=== PATIENT | female | born 1975 | race Caucasian/White ===

== ENCOUNTER 2016-10-24 21:55 | Emergency (ER) | payer BC ==
[~2016-10-24] VITALS: Ht 170.2 cm; Wt 76.7 kg
[~2016-10-24 21:55] MED LIST: DIAZ5TAB4 PO; FAMO20TA8 PO; METO10TA3 PO; MULT1TAB69 PO; SERT50TA12 PO; [UNRECOGNIZED DRUG - CODE] PO
[2016-10-24 21:57] VITALS: Ht 170.2 cm; Wt 76.7 kg
--- OUTSIDE RECORDS SUMMARY | 2016-10-24 22:00 | XMS REPORT | Continuity of Care Document ---
Author Author [facility] Organization [facility] Address Unknown Phone Unavailable Support Name Relationship Address Phone KAVITHA RUEDA APRN Caregiver [facility] [address] [place], [place] [phone] RUBIO KATHLEEN MD Caregiver [address] [place] [phone] SARAH OCONNOR Next Of Kin [address] [id number] Insurance Providers Payer Name Policy Number Subscriber Name Relationship [employer] Other [id number] ZeeshanJulito Spouse Advance Directives Directive Response Recorded Date/Time Resuscitation Documents on File No 06/07/14 1:55pm Problems No known problems or medical conditions. Medications Medication Dose Route Sig Days/Qty Instructions Order Date Discontinued Date Status Multivitamin 1 Tab PO DAILY 06/07/14 Active Griselda's Wort 300 Mg PO DAILY 06/07/14 Active Diazepam 5 Mg PO DAILY 30 Qty 06/07/14 Active Metoclopramide HCl 10 Mg PO DAILY 90 Qty 06/07/14 Active Famotidine 20 Mg PO DAILY 14 Qty 06/07/14 Active Sertraline HCl 50 Mg PO DAILY 84 Qty 06/07/14 Active Social History Social History Problem Response Recorded Date/Time Smoking Status Current every day smoker 06/08/2014 7:41am Chewing Tobacco Status No 06/08/2014 7:41am Hx Substance Use No 06/08/2014 7:41am Hx Alcohol Use No 06/08/2014 7:41am Has the pt used tobacco in the last 12 months Yes 06/08/2014 7:41am Hospital Discharge Instructions No hospital discharge instructions. Plan of Care No plan of care. Functional Status No functional status results. Allergies, Adverse Reactions, Alerts Allergen Type Severity Reaction Status Last Updated Sulfa (Sulfonamide Antibiotics) Allergy Unknown Active 06/07/14 Nitroglycerin Allergy Unknown Active 06/07/14 Immunizations Name Given Type Hx Influenza Vaccination No Historical Hx Pneumococcal Vaccination No Historical Hx Influenza Vaccination No Historical Vital Signs Acute Vital Signs Vital Response Date/Time Temperature (Fahrenheit) 98.2 deg F (96.8 - 99.1) Temperature (Calculated Celsius) 36.56134 degrees C (36.0 - 37.3) Temperature Source Temporal Pulse Rate (adult) 88 bpm (60 - 100) Respiratory Rate 16 breaths/min (10 - 20) O2 Sat by Pulse Oximetry 97 % (90 - 100) Oxygen Delivery Method Room Air Blood Pressure 108/81 mm Hg Blood Pressure Source Automatic Cuff Height 5 ft 7 in Weight 159 lb Body Mass Index 24.0 kg/m^2 Results Name: IRENE OCONNOR Unit #: [id number] : 1975 Sex: F Loc / Svc: KRISTINA DOS: 06/06/14 Signed Report #: [id number] DIAGNOSTIC IMAGING REPORT TYPE OF EXAM: CT ABDOMEN W/CONTRAST Dictated By: DENIZ KATHLEEN MD INDICATION: ITS.REASON: 789.07 EPIGASTRIC PAIN 789.[address] ABDOMEN W/CONTRAST: Comparison: None Technique: Axial CT images were performed through the abdomen after the administration of intravenous contrast. Contrast: Omnipaque 300 89 mL Findings: The lung bases are clear. The liver appears normal. No enhancing lesion or mass. No intra or extrahepatic biliary ductal dilatation. The gallbladder is surgically absent. The spleen, pancreas and adrenal glands are normal. Evidence of a prior Abram fundoplication. Right kidney shows a small probable cyst in the lower pole. Left kidney appears normal. No abdominal adenopathy. The visualized loops of small and large bowel in the abdomen are normal. Bone windows are normal. Impression: Negative exam. No acute disease process seen in the abdomen. . Procedures Procedure Status Date Provider(s) Esophagogastroduodenoscopy (EGD) with closed biopsy completed 06/08/14 RUBIO KATHLEEN MD Encounters Encounter Location Date/Time Registered Clinic [facility] 06/06/14 6:41am
--- OUTSIDE RECORDS SUMMARY | 2016-10-24 22:00 | XMS REPORT | Continuity of Care Document ---
Author Author [facility] Organization [facility] Address Unknown Phone Unavailable Allergies Active Description Code Type Severity Reaction Onset Reported/Identified Relationship to Patient Clinical Status Yes nitroglycerin nitroglycerin Drug Allergy Severe HEART STOPS 08/21/2015 Yes Sulfa (Sulfonamide Antibiotics) Sulfa (Sulfonamide Antibiotics) Drug Allergy Moderate HIVES, MIGRAINES 08/21/2015 Medications Problems Procedures Results Encounters ACCT No. Visit Date/Time Discharge Status Pt. Type Provider Facility Loc./Unit Complaint [id number] 08/22/2015 08:51:00 2015 00:00:00 DIS Outpatient Nile WATKINS, Marbin Potts [facility] W.END
--- NOTE | 2016-10-24 22:32 | ERPDOC ---
Departure Disposition Decision Date: Oct 24, 2016 Disposition Decision Time: 23:21 Disposition: 01 DISCHARGED HOME, SELF-CARE Impression Impression Impression: Primary Impression: Atypical chest pain Severity: Moderate Condition: Improved Seen By: Physician only Referrals: KAVITHA RUEDA APRN (Family) Patient Instructions: Gastroesophageal Reflux Disease (ED) Problems/Meds/Labs Reviewed?: Yes Medications reviewed and manag: Yes Follow up care ordered?: Yes Mental Status: Alert, Oriented Scripts Sucralfate (Carafate) 1 Gm Tablet 1 G PO ACHS for 10 Days, TAB Take 1 tablet, by mouth, 4 times a day (Before EACH meal and at BEDTIME). Prov: HUY MCKENZIE MD 10/24/16 HPI - Chest Pain General Chief Complaint: Chest Pain Stated Complaint: CP Time Seen by Provider: 22:32 Source: patient Exam Limitations: no limitations HPI - Chest Pain Initial Comments Patient is a 41-year-old female presents emergency room for evaluation of anterior chest pain with radiation to neck. Patient states she gets these episodes several times last 6 months she's had them twice. Usually they last 15 -20 minutes and self resolved. Patient is been worked up in the past with no elucidation of source. Patient tonight began developing the symptoms however they did not go away they continued for an hour. Patient became concerned so decided to present to the ER for evaluation. Occurred At: home Onset/Timing: Rapid Duration: 1 hr Pain/Severity Scale: Now & Worst: 4/10 Location: substernal Aspirin Treatment Today: unknown Prior Chest Pain/Cardiac Mariusz: non-cardiac Hx of Similar Symptoms: Yes Allergies: Coded Allergies: Sulfa (Sulfonamide Antibiotics) (Verified Allergy, Unknown, 10/24/16) nitroglycerin (Verified Allergy, Unknown, 10/24/16) Past History Past Medical History Metabolic: DENIES: diabetes, hypercholesterolemia, hypertension, hypothyroidism ENMT: DENIES: allergies Cardiac: DENIES: A-fib, CAD, CHF, [place] Respiratory: DENIES: COPD, asthma GI: GERD Surgical History General: DENIES: appendix, gallbladder Vaccines Hx Influenza Vaccination: No Hx Pneumococcal Vaccination: No Social History Smoking Status: Current every day smoker Substance Use Type: does not use Alcohol Intake: none Review of Systems Constitutional Constitutional: DENIES: appetite decrease, chills, dizziness, fever, weakness Eyes Vision: DENIES: double vision, loss of visual kwok ENMT Sinuses: DENIES: congestion, rhinorrhea Mouth/Throat: DENIES: scratchy throat, sore throat Cardiovascular Cardiac: chest pain, DENIES: dyspnea on exertion Pulmonary Respiratory: DENIES: cough, dyspnea, sputum, tachypnea GI Upper Abdomen: DENIES: nausea, pain, vomiting Lower Abdomen: DENIES: constipation, diarrhea, pain General: DENIES: frequency, urgency Musculoskeletal General: DENIES: pain Integumentary Skin: DENIES: color change, itching, rash Neurological General: DENIES: headache Endocrine Endocrine: DENIES: heat/cold intolerance Hematologic/Lymphatic Hematologic/Lymphatic: DENIES: anemia Physical Exam General General Nourishment: well nourished, well developed General Body Habitus: well groomed Vitals and Pain First Documented Vital Signs Date Time Temp Pulse Resp B/P Pulse Ox O2 Delivery O2 Flow Rate FiO2 10/24/16 21:57 97.9 88 20 114/73 99 Room Air Weight: Kilograms: 76.700 Height (feet): 5 Height (inches): 7.00 Triage Pain Scale: RN VS reviewed by Provider: Yes Eyes (brief) Eyes Brief: found: EOMI ENMT (brief) ENMT Brief: FOUND: mucosa moist, normal dentition, NOT FOUND: nasal erythema, pharnyx erythema, tonsillar deviation Neck (brief) Neck: NOT FOUND: adenopathy, spasm, tenderness Respiratory (brief) Respiratory: FOUND: clear all kwok, equal bilaterally, NOT FOUND: rales, wheezes Cardiovascular (brief) Cardiac: FOUND: regular rate, regular rhythm Capillary Refill: <2 sec Abdomen (brief) Abdominal Brief: FOUND: bowel normo active x4, soft, NOT FOUND: distended, tender Lymphatic (brief) Lymphatic Brief: NOT FOUND: adenopathy Musculoskeletal (brief) Musculoskeletal Brief: NOT FOUND: spasm, tenderness Integumentary (brief) Integumentary Brief: FOUND: dry, pink, warm, NOT FOUND: rash Neurologic (brief) Neurological Brief: FOUND: CN w/o gross def to obs, motor-no gross deficits, sensory-no gross deficits Psychiatric (brief) Psychiatric Brief: FOUND: alert, oriented Differential Diagnoses Considering: Acute [place], Anxiety/Panic, Angina, Aortic Dissection, Bradycardia, CHF, Esophageal Spasm, GERD, Hypertensive Emergency, Pericarditis, Pneumothorax , Pulmonary Edema, Pulmonary Embolus, Muscle Spasm Progress Results/Orders Orders Procedure Category Date Status Time EKG EKG 10/24/16 Taken 21:56 Cbc W/Auto LAB 10/24/16 Complete Diff-Reflex Manual 22:32 Bmp - Basic Metabolic LAB 10/24/16 Complete Panel 22:32 Probnp LAB 10/24/16 Complete 22:32 Troponin I W LAB 10/24/16 Complete Hemolysis Index 22:32 D-Dimer LAB 10/24/16 Complete 22:32 Magnesium LAB 10/24/16 Complete 22:32 Chest 1 View RAD 10/24/16 Taken 22:32 G.I. Cocktail PHA 10/24/16 Complete (/Maalox/Lidocaine 22:45 Lab Results Laboratory Tests Test 10/24/16 22:41 White Blood Count 9.4T/MM3 Red Blood Count 4.25M/MM3 Hemoglobin 14.2GM/DL Hematocrit 40.4% Mean Corpuscular Volume 95.1UM3 Mean Corpuscular Hemoglobin 33.4UUG Mean Corpuscular Hemoglobin Concent 35.1GM/DL RDW Standard Deviation 42.8FL Platelet Count 216T/MM3 Mean Platelet Volume 9.5UM3 Immature Granulocyte % (Auto) % Neutrophils (%) (Auto) % Lymphocytes (%) (Auto) % Monocytes (%) (Auto) % Eosinophils (%) (Auto) % Basophils (%) (Auto) % Absolute Immature Granulocyte (auto T/MM3 Absolute Neutrophils (auto) T/MM3 Absolute Lymphocytes (auto) T/MM3 Absolute Monocytes (auto) T/MM3 Absolute Eosinophils (auto) T/MM3 Absolute Basophils (auto) T/MM3 Neutrophils % (Manual) 89.0% Band Neutrophils % 1.0% Lymphocytes % (Manual) 4.0% Monocytes % (Manual) 4.0% Eosinophils % (Manual) 2.0% Absolute Neutrophils (Manual) 8.4T/MM3 Band Neutrophils # 0.1T/MM3 Lymphocytes # (Manual) 0.4T/MM3 Monocytes # (Manual) 0.4T/MM3 Eosinophils # (Manual) 0.2T/MM3 Red Cell Morphology Comment Normal D-Dimer 216NG/ML Turbidity < 20 Sodium Level 142MEQ/L Potassium Level 4.0MEQ/L Chloride Level 108MEQ/L Carbon Dioxide Level 26MEQ/L Anion Gap 8MEQ/L Blood Urea Nitrogen 18.0MG/DL Creatinine 0.7MG/DL Glomerular Filtration Rate Calc 92 BUN/Creatinine Ratio 26RATIO Glucose Level 124MG/DL Calculated Osmolality 276MOSM/KG Calcium Level 8.4MG/DL Magnesium Level 2.2MG/DL Icterus Index < 2 Troponin I < 0.012ng/ml YF-Tqx-D-Type Natriuretic Peptide 42PG/ML Chemistry Specimen Hemolysis < 15 Medications Current ED Medications Pharmacy Profile Note (/Maalox/ Lidocaine Soln) 30 ml O ONCE PO Last administered on 10/24/16t 23:04; Start 10/24/16 at 22:45; Stop 10/24/16 at 22:46 ; Status DC [facility] EKG and x-ray are all noncontributory, patient's symptoms have resolved she feels it is due to just time, however I did give patient a GI cocktail. We'll discharge patient home on Carafate follow-up with PCP for further evaluation EKG EKG : Rate: 60-100 Rhythm: sinus [place]: normal QRS: normal Intervals: normal ST/T: non-specific changes Interpreted by: signing physician Xray Xray : Xray: CXR Portable Interpretation: Normal, Interpreted by Me (no acute cardiopulmonary findings ) HUY MCKENZIE MD Oct 24, 2016 22:32
--- OUTSIDE RECORDS SUMMARY | 2016-10-24 22:36 | XMS REPORT | Continuity of Care Document ---
Author Author [facility] Organization [facility] Address Unknown Phone Unavailable Allergies Active Description Code Type Severity Reaction Onset Reported/Identified Relationship to Patient Clinical Status Yes nitroglycerin nitroglycerin Drug Allergy Severe HEART STOPS 08/21/2015 Yes Sulfa (Sulfonamide Antibiotics) Sulfa (Sulfonamide Antibiotics) Drug Allergy Moderate HIVES, MIGRAINES 08/21/2015 Medications Problems Procedures Results Encounters ACCT No. Visit Date/Time Discharge Status Pt. Type Provider Facility Loc./Unit Complaint [id number] 08/22/2015 08:51:00 2015 00:00:00 DIS Outpatient Nile WATKINS, Marbin Potts [facility]END
--- OUTSIDE RECORDS SUMMARY | 2016-10-24 22:37 | XMS REPORT | Continuity of Care Document ---
Author Author [facility] Organization [facility] Address Unknown Phone Unavailable Support Name Relationship Address Phone KAVITHA RUEDA APRN Caregiver [facility] [address] [place], [place] [phone] RUBIO KATHLEEN MD Caregiver [address] [place] [phone] SARAH OCONNOR Next Of Kin [address] [id number] Insurance Providers Payer Name Policy Number Subscriber Name Relationship [employer] Other [id number] ZeeshanJulito Spouse Advance Directives Directive Response Recorded [...] F (96.8 - 99.1) Temperature (Calculated Celsius) 36.95162 degrees C (36.0 - 37.3) Temperature Source [...] kg/m^2 Results Name: IRENE OCONNOR Unit #: [id number] : 1975 Sex: F Loc / Svc: KRISTINA DOS: 06/06/14 Signed Report #: [id number] DIAGNOSTIC IMAGING REPORT TYPE OF EXAM: CT [...] MD Encounters Encounter Location Date/Time Registered Clinic [facility] 06/06/14 6:41am
[2016-10-24] MEDS ORDERED: G.I. COCKTAIL 30ml PO ONE (22:45)
[2016-10-24 22:47] LABS: HCT - HEMATOCRIT 40.4 % (36-46); HGB - HEMOGLOBIN 14.2 GM/DL (12-16); MEAN CORPUSCULAR HGB 33.4 UUG (26-34); MEAN CORPUSCULAR HGB CONC(MCHC 35.1 GM/DL (31-37); MEAN CORPUSCULAR VOLUME 95.1 UM3 (80-100); MEAN PLATELET VOLUME 9.5 UM3 (9.4-12.4); RED BLOOD COUNT 4.25 M/MM3 (4.00-5.20); WBC - WHITE BLOOD COUNT 9.4 T/MM3 (4.5-11.0)
[2016-10-24 22:57] LABS: ANION GAP 8 MEQ/L (5-15); BUN/CREATININE RATIO 26 RATIO (6-26); CALCIUM 8.4 MG/DL (8.4-10.2); CHLORIDE 108 MEQ/L (98-107); CO2 - CARBON DIOXIDE 26 MEQ/L (22-30); CREATININE 0.7 MG/DL (0.7-1.2); GLOMERULAR FILTRATION RATE 92; GLUCOSE 124 MG/DL (65-110); MAGNESIUM 2.2 MG/DL (1.6-2.3); SODIUM 142 MEQ/L (134-144)
[2016-10-24 23:05] LABS: PROBNP 42 PG/ML (0-175)
[2016-10-24 23:07] LABS: BAND NEUTROPHILS # 0.1 T/MM3; EOSINOPHILS # (MANUAL) 0.2 T/MM3 (0-0.5); LYMPHOCYTES # (MANUAL) 0.4 T/MM3 (1-4.8); MONOCYTES # (MANUAL) 0.4 T/MM3 (0-0.8); NEUTROPHILS #(MANUAL)-ABSOLUTE 8.4 T/MM3 (1.8-7.7); TOTAL CELLS COUNTED 100 %
--- NOTE | 2016-10-24 23:21 | NUR ---
STATUS PT REPORTS IMPROVEMENT IN PRESSURE IN HER SHOULDERS. DENIES CP AND NAUSEA AT THIS TIME.
[2016-10-24] MEDS ORDERED: SUCR1TAB20 PO (23:22)
[2016-10-24 23:35] VITALS: BP 115/76; PULSE 82; RESP 20; TEMP 97.9; O2SAT 97
--- NOTE | 2016-10-24 23:35 | NUR ---
DEPART PT GIVEN DI FOR GERD, CARAFATE, F/U. RX FOR CARAFATE PROVIDED. PT VERBALIZES UNDERSTANDING OF DI. QUESTIONS ASKED/ANSWERED - DENIES FURTHER QUESTIONS/NEEDS AT THIS TIME. IV SITE REMOVED. PERSONAL BELONGINGS GATHERED. PT AMBULATED/ESCORTED TO ED EXIT - GAIT STABLE, NO SIGN OF DISTRESS. SPOUSE AT SIDE.
--- NOTE | 2016-10-25 08:31 | DI ---
Indication: ITS.REASON: chest discomfort PROCEDURE: CHEST 1 VIEW: Encounter: Initial Comparison: None FINDINGS: The lungs are clear. There is no abnormal airspace opacity, pleural effusion or pneumothorax identified. The heart size, pulmonary vasculature and mediastinum are within normal limits. No significant skeletal abnormality is seen. IMPRESSION: No acute cardiopulmonary abnormality. .
== END 2016-10-24 23:35 | disposition home or self-care (01) ==
LOC: ED 21:55
DX: R07.89 Other chest pain (principal); M54.2 Cervicalgia
CPT/HCPCS: 36415; 71010; 80048; 83735; 83880; 84484; 85025; 85379; 93005; 99284; J7999